=== PATIENT | female | born 1975 | race Caucasian/White ===

== ENCOUNTER 2022-02-27 00:27 | Emergency (ER) | payer SELFPAY | END 2022-02-27 01:34 | disposition home or self-care (01) | LOC: CSHERS 00:27 | DX: K64.4 Residual hemorrhoidal skin tags (principal); K60.2 Anal fissure, unspecified; E03.9 Hypothyroidism, unspecified; E78.5 Hyperlipidemia, unspecified; G40.909 Epilepsy, unspecified, not intractable, without status epilepticus; F17.210 Nicotine dependence, cigarettes, uncomplicated | CPT/HCPCS: 99282 ==